=== PATIENT | male | born 1985 | race Caucasian/White ===

== ENCOUNTER 2024-04-19 10:11 | Emergency (ER) | payer OTHER ==
[~2024-04-19] VITALS: Ht 185.4 cm; Wt 120.2 kg
[~2024-04-19 10:11] MED LIST: XYOSTED100 MG/0.5 SUB-Q
[2024-04-19] MEDS ORDERED: CEPHALEXIN MONOHYDRATE 500 MG CAP PO ONE (10:30)
[2024-04-19] MEDS ORDERED: ACETAMINOPHEN 325 MG TAB PO ONE (10:30)
[2024-04-19] MEDS ORDERED: IBUPROFEN 600 MG TAB PO ONE (10:30)
[2024-04-19] MEDS ORDERED: CEPHALEXIN500 M1 PO (10:31)
[2024-04-19 10:40] VITALS: BP 152/96
== END 2024-04-19 10:40 | disposition home or self-care (01) ==
LOC: ED 10:11
DX: L03.317 Cellulitis of buttock (principal); Z79.899 Other long term (current) drug therapy
CPT/HCPCS: 99283; A9270